=== PATIENT | female | born 1955 | race Caucasian/White ===

== ENCOUNTER 2022-04-06 09:09 | Emergency (ER) | payer MEDICARE, OTHER ==
[2022-04-06] MEDS ORDERED: Propofol 200 MG/20 ML SDV IV ONE (09:10)
[2022-04-06] MEDS ORDERED: Midazolam 1 MG/ML 2 ML SDV IV ONE (09:10)
[2022-04-06] MEDS ORDERED: Ondansetron 4 MG Tab.DIS PO ONE (09:35)
[2022-04-06] MEDS ORDERED: Acetaminophen/oxyCODONE 325-5 MG Tab PO ONE (09:35)
[2022-04-06] MEDS ORDERED: Sodium Chloride 0.9% 10 ML Syringe FLUSH PRN (09:57)
== END 2022-04-06 12:15 | disposition home or self-care (01) ==
LOC: DL.ED 09:09
DX: S42.251A Displaced fracture of greater tuberosity of right humerus, initial encounter for closed fracture (principal); W01.0XXA Fall on same level from slipping, tripping and stumbling without subsequent striking against object, initial encounter; Y92.003 Bedroom of unspecified non-institutional (private) residence as the place of occurrence of the external cause
CPT/HCPCS: 01620; 23655; 24505; 73020; 73030; 73060; 99283; 99284; A9270; J2250; J2704; J3490